=== PATIENT | female | born 1950 | race Caucasian/White ===

== ENCOUNTER → 2020-12-11 10:59 | Outpatient (CLI) | payer MEDICARE, OTHER, SELFPAY ==
[2020-12-11 12:06] LABS: COVID19 -Nasal RAPID Negative (Negative)
== END ==
PROVIDERS: PCP Internal Medicine; Referring Provider Internal Medicine; Visit Provider Internal Medicine
DX: Z20.822 Contact with and (suspected) exposure to COVID-19 (principal)
CPT/HCPCS: 87635; C9803

== ENCOUNTER → 2020-12-12 10:54 | Outpatient (CLI) | payer MEDICARE, OTHER, SELFPAY ==
--- NOTE | 2020-12-17 09:39 | PM.PFT.1 ---
Pulmonary Function Test Referral & Results Date Patient Seen: 12/12/20 Requesting provider: Leonides Baum Indication: Emphysema Results: The spirometry demonstrates an FVC of 2.57 L which is 79% of predicted. The FEV1 was measured at 1.89 L which is 77% of predicted. The FEV1/FVC ratio was 74 which is 96% of predicted. No bronchodilator was administered The diffusing capacity was measured at 17.28 which is 64% of predicted. No hemoglobin value was provided, so no correction for potential anemia could be made, if appropriate. Interpretation: This study demonstrates mild to moderate obstructive lung disease based on reduction FEV1 although FEV1/FVC ratio is preserved, shape of flow volume loop also supports an element of obstructive lung disease Diffusing capacity is moderately reduced as well, suggesting disease at the capillary alveolar level.
== END ==
PROVIDERS: PCP Internal Medicine; Referring Provider Internal Medicine; Visit Provider Internal Medicine
DX: J43.9 Emphysema, unspecified (principal); F17.210 Nicotine dependence, cigarettes, uncomplicated; J43.2 Centrilobular emphysema
CPT/HCPCS: 94010; 94729

== ENCOUNTER 2021-11-09 17:46 | Emergency (ER) | payer MEDICARE, OTHER, SELFPAY ==
[2021-11-09] VITALS (12 sets, daily range): BP systolic 128–166; BP diastolic 60–69; PULSE 95–113; RESP 18–39; TEMP 36.6; O2SAT 93–99; BMI 41.9
--- NOTE | 2021-11-09 17:55 | DI.RAD.S_ITS ---
PROCEDURE: XR CHEST 2V INDICATIONS: Shortness of breath TECHNIQUE: 2 views of the chest were acquired. COMPARISON: Outside Film, CR, XR CHEST 2 VIEWS, 07/22/2018, 12:29. FINDINGS: Surgical changes and devices: None. Lungs and pleura: Lungs are clear. No pleural effusions or pneumothorax. Mediastinum: Mediastinal contours are normal. Heart size is normal. Bones and chest wall: No suspicious bony abnormalities. Soft tissues appear unremarkable. IMPRESSION: No acute cardiopulmonary process demonstrated radiographically. Dictated by: Loyd You M.D. on 11/09/2021 at 18:29 Approved by: Loyd You M.D. on 11/09/2021 at 18:30
[2021-11-09 18:24] LABS: Add Manual Diff / Slide Review NO; Basophils Absolute Auto 100 /uL (0-100); Basophils Percent Auto 0.5 % (0-2); Eosinophils Absolute Auto 100 /uL (0-450); Eosinophils Percent Auto 0.6 % (2-4); Hemoglobin 12.6 g/dL (12.0-16.0); Lymphocytes Absolute Auto 1200 /uL (1100-4500); Lymphocytes Percent Auto 11.9 % (25-40); Mean Corpuscular HGB Conc 33.9 % (30-36); Mean Corpuscular Hemoglobin 30.2 PG (26-34); Monocytes Absolute Auto 700 /uL (0-900); Monocytes Percent Auto 6.3 % (3-14); Neutrophils Absolute Auto 8300 /uL (1500-7000); Neutrophils Percent Auto 80.7 % (50-75); Platelet Count 300 X10^3/uL (150-400); Red Blood Cell Count 4.16 X10^6/uL (4.0-5.2); Red Cell Distribution Width 13.8 % (11.6-14.8); White Blood Cell Count 10.3 X10^3/uL (4.5-11.0)
[2021-11-09 18:28] LABS: INR 1.1 (0.9-1.3)
[2021-11-09 18:33] LABS: Lactate (Lactic Acid) 2.2 mmol/L (0.7-2.1)
[2021-11-09 18:34] LABS: Alanine Aminotransferase 20 IU/L (<35); Albumin 4.1 g/dL (3.5-5.0); Albumin Globulin Ratio 1.3 (1.0-2.8); Alkaline Phosphatase 108 U/L (38-126); Aspartate Aminotransferase 23 IU/L (14-36); BUN Creatinine Ratio 14.5 (6-22); Bilirubin Total 0.3 mg/dL (0.2-1.3); Blood Urea Nitrogen 8 mg/dL (7-17); Calcium 9.8 mg/dL (8.4-10.2); Carbon Dioxide 28 mmol/L (22-32); Chloride 101 mmol/L (98-107); Creatine Kinase 44 U/L (30-135); Estimated Glomerular Filt Rate > 60.0 mL/min (>60); Globulin 3.2 g/dL (1.7-4.1); Glucose 219 mg/dL (80-110); HEMOLYSIS < 15 (0-50); Potassium 3.7 mmol/L (3.4-5.1); Sodium 136 mmol/L (137-145); Total Protein 7.3 g/dL (6.3-8.2)
[2021-11-09 18:36] LABS: COVID19 -Nasal RAPID Negative (Negative)
[2021-11-09 18:46] LABS: NT-proBNP (BNP-Adult 18+) 155 pg/mL (<125); Troponin I < 0.012 ng/mL (0.01-0.034)
--- NOTE | 2021-11-09 19:31 | PC.NURSE ---
Pt's daughter in law came out of room stating that pt wants oxygen. Pt 02 sat 98% on room air, HR 118, RR 22. Encouraged slow, deep breaths w/ some resolution. Dr. Hinson aware, added on d-dimer.
[2021-11-09] MEDS: MAG HYDROX/ALUMINUM/SIMETH SUS 20 ML, LIDOCAINE VISCOUS 2% 15 ML PO (20:03)
[2021-11-09 20:04] LABS: D Dimer 321 ng/mL (<230)
[2021-11-09 20:18] LABS: Reflexed Lactate in 2 Hours Y
[2021-11-09 20:50] LABS: Lactate 2HR (Lactic Acid Rflx) 1.7 mmol/L (0.7-2.1)
--- NOTE | 2021-11-09 20:50 | ED.SOB ---
HPI - SOB/Dyspnea General Chief Complaint: Shortness of Breath/Dyspnea Stated Complaint: sob Time Seen by Provider: 11/09/21 19:30 Source: patient, EMS, RN notes reviewed and old records reviewed Mode of arrival: EMS Limitations: no limitations History of Present Illness HPI Narrative: This is a 71-year-old comes with complaint of shortness of breath. Patient states it has been worsening for couple days. She has had increasing swelling in her lower extremities for couple months but the last few nights her lower extremities have been significantly more swollen. She has noted orthopnea. She finds if she tries to lay back she feels like there is a father coming up her throat she starts coughing but nothing productive comes up. She feels like there is thick phlegm but does not actually expect rate anything. She denies chest pain or pressure. She denies fevers. She has noted her blood pressures been high recently. She has had some mild nausea for the past month. She has chronic constipation secondary to narcotic use. Patient has known history of breast cancer, her last imaging was in November of 2020 she did not receive chemo or radiation but is on Armidex. She takes an antidepressant and uses Spiriva and budesonide for COPD. She did recently have a biopsy on her arm. She does continues to tobacco, no alcohol or illicit. Dr. Valdez 0 is her primary care Related Data Home Medications Medication Instructions Recorded Confirmed albuterol sulfate 90 mcg/actuation 2 puff INHALATION Q6H PRN 04/29/21 04/29/21 aerosol inhaler (Ventolin HFA) anastrozole 1 mg tablet 1 mg PO DAILY 04/29/21 04/29/21 fluticasone propionate 50 2 spray INTRANASAL DAILY 04/29/21 04/29/21 mcg/actuation nasal spray,suspension quetiapine 25 mg tablet 25 mg PO DAILY 04/29/21 04/29/21 quetiapine 25 mg tablet 50 mg PO BEDTIME 04/29/21 04/29/21 tiotropium bromide 18 mcg capsule 1 cap INHALATION DAILY 04/29/21 04/29/21 with inhalation device (Spiriva with HandiHaler) turmeric 400 mg capsule mg PO 04/29/21 bupropion HCl 100 mg tablet 300 mg PO DAILY 10/14/21 10/14/21 oxycodone-acetaminophen 10 mg-325 1 tab PO 5XD 10/14/21 10/14/21 mg tablet (Percocet) alprazolam 1 mg tablet mg 11/09/21 Previous Rx's Medication Instructions Recorded furosemide 40 mg tablet (Lasix) 40 mg PO DAILY #5 tab 11/09/21 Allergies Allergy/AdvReac Type Severity Reaction Status Date / Time No Known Drug Allergies Allergy Verified 11/09/21 17:53 Review of Systems Review of Systems ROS Unobtainable: All systems reviewed & are unremarkable except as noted in HPI and below Patient History Social History Smoking Status: Current every day smoker Smoking Status: Current every day smoker tobacco type: cigarettes alcohol intake frequency: other Substance Use Type: does not use Exam Narrative Exam Narrative: GENERAL: Alert and oriented x three, obese female in mild distress. HEENT: Head normocephalic, atraumatic, EOMI, pupils reactive, face symmetric, moist mucous membranes NECK: Supple, full range of motion CARDIOVASCULAR: Slightly tachycardic Regular rate and rhythm without murmurs, rubs or gallops. No JVD. RESPIRATORY: Breath sounds equal bilaterally, no wheezes rales or rhonchi. No tachypnea. No accessory muscle use. Patient speaks in full sentences. ABDOMEN: Soft, nontender. Normoactive bowel sounds all 4 quadrants. No guarding or rebound, rigidity, no mass : No CVA tenderness EXTREMITIES: Normal range of motion, no clubbing, bilateral 2+ edema. Neurovascularly intact NEUROLOGICAL: Cranial nerves II through XII grossly intact. Moving all extremities. Normal gait. SKIN: Warm, dry, no petechiae, no rashes or lesions. Initial Vital Signs Initial Vital Signs: Vital Signs Temperature 98 F 11/09/21 17:47 Pulse Rate 100 H 11/09/21 17:47 Respiratory Rate 18 11/09/21 17:47 Blood Pressure 166/60 H 11/09/21 17:47 Pulse Oximetry 96 11/09/21 17:47 Course Orders Ordered: ED Orders 11/09/21 21:12 CT angio chest PE protocol Stat Discontinued Medications Al Hydrox/Mg Hydrox/Simethicone 20 ml/ Lidocaine HCl 15 ml 0 ml PO NOW ONE Stop: 11/09/21 19:58 Last Admin: 11/09/21 20:03 Dose: 35 ml Documented by: COLLIN Furosemide (Furosemide 40 Mg/4 Ml Vial) 40 mg IV NOW ONE Stop: 11/09/21 21:13 Last Admin: 11/09/21 21:50 Dose: 40 mg Documented by: ERNIE Oxycodone/Acetaminophen (Oxycodone/Acetaminophen 5/325 Tablet) 2 tab PO NOW ONE Stop: 11/09/21 21:35 Last Admin: 11/09/21 21:49 Dose: 2 tab Documented by: ERNIE Vital Signs Vital signs: Vital Signs - 8 hr 11/09/21 22:03 11/09/21 22:30 11/09/21 22:49 Pulse Rate 113 H 96 H 95 H Respiratory Rate 21 19 25 H Blood Pressure Pulse Oximetry 97 93 93 11/09/21 22:51 Pulse Rate Respiratory Rate Blood Pressure 128/64 Pulse Oximetry MDM - SOB/Dyspnea Lab Data Result diagrams: 11/09/21 18:15 11/09/21 18:15 Labs: Lab Results 11/09/21 11/09/21 11/09/21 Range/Units 18:10 18:15 18:15 WBC 10.3 (4.5-11.0) X10^3/uL RBC 4.16 (4.0-5.2) X10^6/uL Hgb 12.6 (12.0-16.0) g/dL Hct 37.0 (36-46) % MCV 89.0 (80-100) fL MCH 30.2 (26-34) PG MCHC 33.9 (30-36) % RDW 13.8 (11.6-14.8) % Plt Count 300 (150-400) X10^3/uL Neut % (Auto) 80.7 H (50-75) % Lymph % (Auto) 11.9 L (25-40) % [place] % (Auto) 6.3 (3-14) % Eos % (Auto) 0.6 L (2-4) % Baso % (Auto) 0.5 (0-2) % Neut # (Auto) 8300 H (2600-8866) /uL Lymph # (Auto) 1200 (3166-0850) /uL [place] # (Auto) 700 (0-900) /uL Eos # (Auto) 100 (0-450) /uL Baso # (Auto) 100 (0-100) /uL PT 12.0 (10.1-12.7) SECONDS INR 1.1 (0.9-1.3) D-Dimer (<230) ng/mL Sodium (137-145) mmol/L Potassium (3.4-5.1) mmol/L Chloride (98-107) mmol/L Carbon Dioxide (22-32) mmol/L BUN (7-17) mg/dL Creatinine (0.52-1.04) mg/dL Estimated GFR (>60) mL/min BUN/Creatinine Ratio (6-22) Glucose (80-110) mg/dL Lactate (0.7-2.1) mmol/L Calcium (8.4-10.2) mg/dL Total Bilirubin (0.2-1.3) mg/dL AST (14-36) IU/L ALT (<35) IU/L Alkaline Phosphatase (38-126) U/L Total Creatine Kinase (30-135) U/L CK-MB (CK-2) CK-MB (CK-2) Rel Index Troponin I (0.01-0.034) ng/mL NT-Pro-B Natriuret Pep (<125) pg/mL Total Protein (6.3-8.2) g/dL Albumin (3.5-5.0) g/dL Globulin (1.7-4.1) g/dL Albumin/Globulin Ratio (1.0-2.8) SARS-CoV-2 (PCR) Negative (Negative) 11/09/21 11/09/21 11/09/21 Range/Units 18:15 18:15 18:15 WBC (4.5-11.0) X10^3/uL RBC (4.0-5.2) X10^6/uL Hgb (12.0-16.0) g/dL Hct (36-46) % MCV (80-100) fL MCH (26-34) PG MCHC (30-36) % RDW (11.6-14.8) % Plt Count (150-400) X10^3/uL Neut % (Auto) (50-75) % Lymph % (Auto) (25-40) % [place] % (Auto) (3-14) % Eos % (Auto) (2-4) % Baso % (Auto) (0-2) % Neut # (Auto) (2717-4197) /uL Lymph # (Auto) (7923-7305) /uL [place] # (Auto) (0-900) /uL Eos # (Auto) (0-450) /uL Baso # (Auto) (0-100) /uL PT (10.1-12.7) SECONDS INR (0.9-1.3) D-Dimer 321 H (<230) ng/mL Sodium 136 L (137-145) mmol/L Potassium 3.7 (3.4-5.1) mmol/L Chloride 101 (98-107) mmol/L Carbon Dioxide 28 (22-32) mmol/L BUN 8 (7-17) mg/dL Creatinine 0.55 (0.52-1.04) mg/dL Estimated GFR > 60.0 (>60) mL/min BUN/Creatinine Ratio 14.5 (6-22) Glucose 219 H (80-110) mg/dL Lactate 2.2 H (0.7-2.1) mmol/L Calcium 9.8 (8.4-10.2) mg/dL Total Bilirubin 0.3 (0.2-1.3) mg/dL AST 23 (14-36) IU/L ALT 20 (<35) IU/L Alkaline Phosphatase 108 (38-126) U/L Total Creatine Kinase 44 (30-135) U/L CK-MB (CK-2) TNP CK-MB (CK-2) Rel Index TNP Troponin I < 0.012 (0.01-0.034) ng/mL NT-Pro-B Natriuret Pep 155 H (<125) pg/mL Total Protein 7.3 (6.3-8.2) g/dL Albumin 4.1 (3.5-5.0) g/dL Globulin 3.2 (1.7-4.1) g/dL Albumin/Globulin Ratio 1.3 (1.0-2.8) SARS-CoV-2 (PCR) (Negative) 11/09/21 11/09/21 Range/Units 20:28 20:28 WBC (4.5-11.0) X10^3/uL RBC (4.0-5.2) X10^6/uL Hgb (12.0-16.0) g/dL Hct (36-46) % MCV (80-100) fL MCH (26-34) PG MCHC (30-36) % RDW (11.6-14.8) % Plt Count (150-400) X10^3/uL Neut % (Auto) (50-75) % Lymph % (Auto) (25-40) % [place] % (Auto) (3-14) % Eos % (Auto) (2-4) % Baso % (Auto) (0-2) % Neut # (Auto) (4118-2751) /uL Lymph # (Auto) (9954-2056) /uL [place] # (Auto) (0-900) /uL Eos # (Auto) (0-450) /uL Baso # (Auto) (0-100) /uL PT (10.1-12.7) SECONDS INR (0.9-1.3) D-Dimer (<230) ng/mL Sodium (137-145) mmol/L Potassium (3.4-5.1) mmol/L Chloride (98-107) mmol/L Carbon Dioxide (22-32) mmol/L BUN (7-17) mg/dL Creatinine (0.52-1.04) mg/dL Estimated GFR (>60) mL/min BUN/Creatinine Ratio (6-22) Glucose (80-110) mg/dL Lactate 1.7 (0.7-2.1) mmol/L Calcium (8.4-10.2) mg/dL Total Bilirubin (0.2-1.3) mg/dL AST (14-36) IU/L ALT (<35) IU/L Alkaline Phosphatase (38-126) U/L Total Creatine Kinase (30-135) U/L CK-MB (CK-2) CK-MB (CK-2) Rel Index Troponin I < 0.012 (0.01-0.034) ng/mL NT-Pro-B Natriuret Pep (<125) pg/mL Total Protein (6.3-8.2) g/dL Albumin (3.5-5.0) g/dL Globulin (1.7-4.1) g/dL Albumin/Globulin Ratio (1.0-2.8) SARS-CoV-2 (PCR) (Negative) Imaging Data Chest x-ray: Radiologist's Impression: [address] [address] XRay Report Signed Patient: Katya Boykin MR#: [id number] : 1950 Acct:[id number] Age/Sex: 71 / F Date of Service: 11/09/21 Loc: ED Accession Number: [id number] ?? Procedure: XR chest 2V Ordering Provider: Keeley Hickman D.O. PROCEDURE:? XR CHEST 2V ? INDICATIONS:? Shortness of breath ? TECHNIQUE:? 2 views of the chest were acquired.? ? COMPARISON:? Outside Film, CR, XR CHEST 2 VIEWS, 07/22/2018, 12:29. ? FINDINGS:? ? Surgical changes and devices:? None.? ? Lungs and pleura:? Lungs are clear.? No pleural effusions or pneumothorax.? ? Mediastinum:? Mediastinal contours are normal.? Heart size is normal.? ? Bones and chest wall:? No suspicious bony abnormalities.? Soft tissues appear unremarkable.? ? IMPRESSION:? No acute cardiopulmonary process demonstrated radiographically. ? ? Dictated by: Loyd You M.D. on 11/09/2021 at 18:29 ? ? Approved by: Loyd You M.D. on 11/09/2021 at 18:30 CT scan - chest: Radiologist's Impression: [place] [address] CT Scan Report Signed Patient: Katya Boykin MR#: [id number] : 1950 Acct:[id number] Age/Sex: 71 / F Date of Service: 11/09/21 Loc: ED Accession Number: [id number] ?? Procedure: CT angio chest PE protocol Ordering Provider: Shantel Hnison D.O. PROCEDURE:? CT ANGIO CHEST PE PROTOCOL ? INDICATIONS:? sob, hx breast ca ? TECHNIQUE:? After the administration of intravenous contrast, 2 mm thick sections acquired from the pulmonary apices to the posterior costophrenic angles.? 3-dimensional maximum intensity projection (MIP) coronal and sagittal reformats were then acquired through the thorax.? For radiation dose reduction, the following was used:? automated exposure control, adjustment of mA and/or kV according to patient size.? ? COMPARISON:? None. ? FINDINGS:? Image quality:? There is suboptimal contrast opacification of the segmental and subsegmental pulmonary arteries. ? Pulmonary arteries:? Pulmonary arteries are normal in size, and demonstrate no intraluminal filling defects to suggest large central pulmonary embolism.? ? Lungs and pleura:? Lungs are clear.? No pleural effusions or pneumothorax.? Central and peripheral airways are patent.? ? Mediastinum:? Heart size is normal, without pericardial effusion. Atherosclerotic calcifications are noted in the aorta, great vessels and the coronary vasculature.? No mediastinal or hilar adenopathy.? Thoracic aorta is normal in caliber and enhancement.? Esophagus is normal in caliber, without hiatal hernia.? ? Bones and chest wall:? No suspicious bony lesions.? Ribs and thoracic spine appear intact throughout. Spine degenerative disc disease and facet arthropathy.? Severe bilateral shoulder osteoarthritis.? Thyroid gland is within normal limits.? No axillary or supraclavicular adenopathy.? ? Abdomen:? Diffuse fatty infiltration of the visualized liver.? Visualized upper abdominal solid organs otherwise appear normal in the early arterial phase of enhancement.? ? ? IMPRESSION:? ? 1. Diagnostic sensitivity study limited secondary to suboptimal contrast opacification of the segmental and subsegmental pulmonary arteries. ? 2. No large central pulmonary embolus.? Small pulmonary emboli involving the segmental and subsegmental pulmonary arteries are not excluded by this study.? ? 3.? No lung consolidation or pleural effusions. ? 4. Atherosclerosis including the coronary vasculature. ? 5. Hepatic steatosis.? Dictated by: Kathy Black MD, PhD on 11/09/2021 at 21:46 ? ? Approved by: Kathy Black MD, PhD on 11/09/2021 at 21:49 ECG Data Attestation: I personally reviewed and interpreted this ECG as follows: Interpretation: Sinus tachycardia rate of 104, IL 160 QRS of 94 and QTC of 486. No acute ST elevation or depression appreciated. No S1q3T3. MDM Narrative Medical decision making narrative: 71-year-old female comes with complaint of worsening shortness of breath clinically she appears fluid overloaded, she does not have crackles on chest exam and her chest x-ray is clear but she is slightly tachycardic. She does not drop her oxygenation but is worse when she tries to lay backwards. She does also has risk factors for pulmonary embolism. Troponin x2 is negative with no acute ST changes on EKG making ACS a less likely cause. Her renal function, electrolytes, COVID swab are all appropriate. Her age related cutoff for her dimer would make her negative but with her risk factors feel appropriate to scan her for CT angio. BNP is only 155 but was given a dose of Lasix here in the department based on her clinical symptoms. Initial lactate was elevated but has improved. Blood glucose is elevated 219. CT angiography is negative for large PE. Patient feels improved with her breathing and her orthopnea after diuresis in the department. Plan to continue with Lasix. Patient is to follow-up with her physician. Patient is quite anxious to leave the department and had home. Discharge Plan Departure Patient Disposition: Home Clinical Impression: Acute exacerbation of CHF (congestive heart failure) Instructions: DI for Heart Failure Activity Restrictions/Additional Instructions: Please follow-up with your physician this week for recheck. You may continue home medications as prescribed. Take Lasix daily until gone. Prescription sent to [facility] in [place]. Please return for worsening shortness of breath, passing out, chest pain, increasing swelling of your extremities, fevers, persistent vomiting or other new or concerning symptoms. Prescriptions: New furosemide [Lasix] 40 mg tablet 40 mg PO DAILY Qty: 5 0RF No Action anastrozole 1 mg Tablet 1 mg PO DAILY 0RF quetiapine 25 mg Tablet 50 mg PO BEDTIME 0RF quetiapine 25 mg Tablet 25 mg PO DAILY 0RF albuterol sulfate [Ventolin HFA] 90 mcg/actuation Hfa Aerosol Inhaler 2 puff INHALATION Q6H PRN (Reason: Wheezing) 0RF fluticasone propionate 50 mcg/actuation [place],Suspension 2 spray INTRANASAL DAILY 0RF Spiriva with HandiHaler 18 mcg Capsule, W/Inhalation Device 1 cap INHALATION DAILY 0RF turmeric 400 mg Capsule PO 0RF bupropion HCl [Wellbutrin] 100 mg Tablet 300 mg PO DAILY 0RF oxycodone-acetaminophen [Percocet] 10-325 mg Tablet 1 tab PO 5XD 0RF alprazolam 1 mg tablet 0RF
[2021-11-09 21:03] LABS: Troponin I < 0.012 ng/mL (0.01-0.034)
--- NOTE | 2021-11-09 21:12 | DI.CT.S_ITS ---
PROCEDURE: CT ANGIO CHEST PE PROTOCOL INDICATIONS: sob, hx breast ca TECHNIQUE: After the administration of intravenous contrast, 2 mm thick sections acquired from the pulmonary apices to the posterior costophrenic angles. 3-dimensional maximum intensity projection (MIP) coronal and sagittal reformats were then acquired through the thorax. For radiation dose reduction, the following was used: automated exposure control, adjustment of mA and/or kV according to patient size. COMPARISON: None. FINDINGS: Image quality: There is suboptimal contrast opacification of the segmental and subsegmental pulmonary arteries. Pulmonary arteries: Pulmonary arteries are normal in size, and demonstrate no intraluminal filling defects to suggest large central pulmonary embolism. Lungs and pleura: Lungs are clear. No pleural effusions or pneumothorax. Central and peripheral airways are patent. Mediastinum: Heart size is normal, without pericardial effusion. Atherosclerotic calcifications are noted in the aorta, great vessels and the coronary vasculature. No mediastinal or hilar adenopathy. Thoracic aorta is normal in caliber and enhancement. Esophagus is normal in caliber, without hiatal hernia. Bones and chest wall: No suspicious bony lesions. Ribs and thoracic spine appear intact throughout. Spine degenerative disc disease and facet arthropathy. Severe bilateral shoulder osteoarthritis. Thyroid gland is within normal limits. No axillary or supraclavicular adenopathy. Abdomen: Diffuse fatty infiltration of the visualized liver. Visualized upper abdominal solid organs otherwise appear normal in the early arterial phase of enhancement. IMPRESSION: 1. Diagnostic sensitivity study limited secondary to suboptimal contrast opacification of the segmental and subsegmental pulmonary arteries. 2. No large central pulmonary embolus. Small pulmonary emboli involving the segmental and subsegmental pulmonary arteries are not excluded by this study. 3. No lung consolidation or pleural effusions. 4. Atherosclerosis including the coronary vasculature. 5. Hepatic steatosis. Dictated by: Kathy Black MD, PhD on 11/09/2021 at 21:46 Approved by: Kathy Black MD, PhD on 11/09/2021 at 21:49
[2021-11-09] MEDS: OXYCODONE/ACETAMINOPHEN 5/325 TABLET 2 TAB PO (21:49)
[2021-11-09] MEDS: FUROSEMIDE 40 MG/4 ML VIAL IV (21:50)
--- NOTE | 2021-11-10 14:45 | PC.NURSE ---
pt daughter called to clarify what she was reading in the D/C paperwork.
== END 2021-11-09 23:06 | disposition home or self-care (01) ==
PROVIDERS: Emergency Medicine; Emergency Provider Emergency Medicine
DX: I50.9 Heart failure, unspecified (principal); F17.210 Nicotine dependence, cigarettes, uncomplicated; Z20.822 Contact with and (suspected) exposure to COVID-19; R00.0 Tachycardia, unspecified; R03.0 Elevated blood-pressure reading, without diagnosis of hypertension
CPT/HCPCS: 36415; 71046; 71275; 80053; 82550; 83605; 83880; 84484; 85025; 85379; 85610; 87635; 93005; 93010; 96374; 99284; C9803; J1940; Q9967

== ENCOUNTER 2023-01-02 13:27 | Emergency (ER) | payer MEDICARE, OTHER, SELFPAY ==
[2023-01-02 13:58] VITALS: BP 136/99; PULSE 87; RESP 16; TEMP 36.1; O2SAT 96; BMI 38.7
--- NOTE | 2023-01-02 14:01 | DI.RAD.S_ITS ---
PROCEDURE: XR CHEST 1V INDICATIONS: cough TECHNIQUE: One view of the chest was acquired. COMPARISON: None. FINDINGS: Surgical changes and devices: Partially visualized left shoulder arthroplasty. Lungs and pleura: Lungs are clear. No pleural effusions or pneumothorax. Mediastinum: Mediastinal contours appear normal. Heart size is normal. Bones and chest wall: No suspicious bony lesions. Overlying soft tissues appear unremarkable. IMPRESSION: No acute pulmonary process. Dictated by: Eva Rutherford M.D. on 01/02/2023 at 14:15 Approved by: Eva Rutherford M.D. on 01/02/2023 at 14:15
[2023-01-02 15:10] LABS: Influenza A - CEPHEID Flu A NEGATIVE (NEGATIVE); Influenza B - CEPHEID Flu B NEGATIVE (NEGATIVE); Respiratory Syncytial Virus Negative (Negative)
[2023-01-02 15:15] LABS: COVID-19 CEPHEID 4-PLEX PCR Negative (Negative)
[2023-01-02 17:43] VITALS: BP 131/82; PULSE 89; RESP 18; O2SAT 99
--- NOTE | 2023-01-02 19:02 | ED_ITS ---
HPI - URI/Sore Throat <Alaina Birmingham PA-C - Last Filed: 01/02/23 19:51> General Chief Complaint: Upper Respiratory Symptoms Stated Complaint: weak chest pain back pain cough Time Seen by Provider: 01/02/23 17:16 History of Present Illness HPI Narrative: Patient is a 72-year-old female with COPD, CHF, history of breast cancer in remission, presenting for evaluation of a cough x7 days after returning from a cruise and new onset weakness this morning. She denies chest pain, shortness of breath or wheezing, but she does report some visual blurriness for the last several days, headache characterized by increased frontal facial pressure, and weakness occurring suddenly this morning. She says that she felt suddenly dizzy and weak like she might fall this morning and chose to come into the ED. She is also concerned about a pain in her back between her shoulder blades which started yesterday. She says that she fixed her food this morning but did not eat because they came straight to the emergency room due to her dizziness. She notes that she smokes about a pack a day and has COPD. She notes she takes Symbicort daily and denies increased albuterol usage. She denies any recent surgery or coagulation problems in the past. She reports nasal congestion and a sensation of her ears being clogged. She also endorses body aches and chills but says she does not ever have a fever. Of note, she reports a history of breast cancer several years ago. She notes that she had a CT last month with her primary care for her regular lung cancer screening and it showed something concerning which she was to follow up on. She states that she is uncertain if she feels weak at this time, but is afraid to stand up because it may cause her to fall. Related Data Home Medications Medication Instructions Recorded Confirmed albuterol sulfate 90 mcg/actuation 2 puff inhalation Q6H PRN Wheezing 04/29/21 05/26/22 aerosol inhaler (Ventolin HFA) fluticasone propionate 50 2 spray intranasal DAILY 04/29/21 05/26/22 mcg/actuation nasal spray,suspension quetiapine 25 mg tablet 25 mg PO DAILY 04/29/21 05/26/22 quetiapine 25 mg tablet 50 mg PO BEDTIME 04/29/21 05/26/22 tiotropium bromide 18 mcg capsule 1 cap inhalation DAILY 04/29/21 05/26/22 with inhalation device (Spiriva with HandiHaler) turmeric 400 mg capsule mg PO 04/29/21 oxycodone-acetaminophen 10 mg-325 1 tab PO DAILY 10/14/21 05/26/22 mg tablet (Percocet) alprazolam 1 mg tablet mg 11/09/21 ascorbic acid (vitamin C) 500 mg 500 mg PO DAILY 05/26/22 05/26/22 tablet (Vitamin C) cholecalciferol (vitamin D3) 25 1,000 unit DAILY 05/26/22 05/26/22 mcg (1,000 unit) tablet (Vitamin D3) furosemide 40 mg tablet (Lasix) 40 mg PO PRN PRN Edema 05/26/22 05/26/22 metformin 500 mg tablet 500 mg PO DAILY 05/26/22 05/26/22 mirtazapine 30 mg tablet 30 mg PO DAILY 05/26/22 05/26/22 Previous Rx's Medication Instructions Recorded anastrozole 1 mg tablet 1 mg PO DAILY #30 tabs 12/16/21 Allergies Allergy/AdvReac Type Severity Reaction Status Date / Time No Known Drug Allergies Allergy Verified 11/09/21 17:53 Patient History <Alaina Birmingham PA-C - Last Filed: 01/02/23 19:51> Social History Smoking Status: Current every day smoker Smoking Status: Current every day smoker tobacco type: cigarettes alcohol intake frequency: other Substance Use Type: does not use Exam <Alaina Birmingham PA-C - Last Filed: 01/02/23 19:51> Initial Vital Signs Initial Vital Signs: Vital Signs Temperature 97 F L 01/02/23 13:58 Pulse Rate 87 01/02/23 13:58 Respiratory Rate 16 01/02/23 13:58 Blood Pressure 136/99 H 01/02/23 13:58 Pulse Oximetry 96 01/02/23 13:58 Oxygen Delivery Method Room Air 01/02/23 13:58 GENERAL: 72 year old patient appears stated age. Well-developed patient, in no acute distress. Sitting in a wheelchair. [place]: Atraumatic. Normocephalic. Tenderness to percussion of sinuses EYES: Pupils equal round and reactive. No scleral icterus. No injection or drainage. ENT: Nose without bleeding, purulent drainage. Throat without erythema, Airway patent. Uvula midline. TMs pearly chavez with good COL. NECK: Trachea midline. CARDIOVASCULAR: Regular rate and rhythm without murmurs, gallops, or rubs. RESPIRATORY: Clear to auscultation. Breath sounds equal bilaterally. No wheezes, rales, or rhonchi. EXTREMITIES: No bilateral edema BACK: Tender over bilateral scapula area worse with palpation, no chest pain with external palpation, no focal spinal tenderness NEURO: AOx3. SKIN: No rash or erythema of visible areas <DO Ruddy Kim Last Filed: 01/03/23 03:13> Initial Vital Signs Initial Vital Signs: Vital Signs Temperature 97 F L 01/02/23 13:58 Pulse Rate 87 01/02/23 13:58 Respiratory Rate 16 01/02/23 13:58 Blood Pressure 136/99 H 01/02/23 13:58 Pulse Oximetry 96 01/02/23 13:58 Oxygen Delivery Method Room Air 01/02/23 13:58 Course <Alaina Birmingham PA-C - Last Filed: 01/02/23 19:51> Orders Ordered: ED Orders 01/02/23 14:01 XR chest 1V Stat 01/02/23 14:03 Covid-19 + FLU A/B + RSV - PCR Stat Vital Signs Vital signs: Vital Signs - 8 hr 01/02/23 13:58 01/02/23 17:43 Temperature 97 F L Pulse Rate 87 89 Respiratory Rate 16 18 Blood Pressure 136/99 H 131/82 Pulse Oximetry 96 99 Oxygen Delivery Method Room Air Room Air <Shady Lopez DO - Last Filed: 01/03/23 03:13> Orders Ordered: ED Orders 01/02/23 14:01 XR chest 1V Stat 01/02/23 14:03 Covid-19 + FLU A/B + RSV - PCR Stat Vital Signs Vital signs: Vital Signs - 8 hr 01/02/23 13:58 01/02/23 17:43 Temperature 97 F L Pulse Rate 87 89 Respiratory Rate 16 18 Blood Pressure 136/99 H 131/82 Pulse Oximetry 96 99 Oxygen Delivery Method Room Air Room Air MDM - URI/Sore Throat <Alaina Birmingham PA-C - Last Filed: 01/02/23 19:51> Lab Data Labs: Lab Results 01/02/23 Range/Units 14:03 SARS-CoV-2 (PCR) Negative (Negative) Influenza A (RT-PCR) Flu a negative (NEGATIVE) Influenza B (RT-PCR) Flu b negative (NEGATIVE) RSV (PCR) Negative (Negative) Imaging Data Chest x-ray: Radiologist's Impression: PROCEDURE:? XR CHEST 1V ? INDICATIONS:? cough ? TECHNIQUE:? One view of the chest was acquired.? ? COMPARISON:? None. ? FINDINGS:? ? Surgical changes and devices:? Partially visualized left shoulder arthroplasty. ? Lungs and pleura:? Lungs are clear.? No pleural effusions or pneumothorax.? ? Mediastinum:? Mediastinal contours appear normal.? Heart size is normal.? ? Bones and chest wall:? No suspicious bony lesions.? Overlying soft tissues appear unremarkable.? ? IMPRESSION:? No acute pulmonary process. ? ? Dictated by: Eva Rutherford M.D. on 01/02/2023 at 14:15 ? ? Approved by: Eva Rutherford M.D. on 01/02/2023 at 14:15 ? MDM Narrative Medical decision making narrative: CC: This is a new problem, uncertain diagnosis possible systemic effects Complicating co-morbidities: CHF, COPD, history of breast cancer in remission Corroborating data: Data collected from: patient Medical records reviewed: treated for CHF exacerbation last year Differential considered: ACS, lung cancer, dysrhythmia, electrolyte disturbance, PE, sinusitis, bronchitis, atypical pneumonia Exam documented above, pertinent findings include: Tenderness to percussion of sinuses, clear to auscultation bilaterally Lab Test results independently reviewed as above. Pertinent findings: Negative for COVID, flu and RSV. Imaging studies independently reviewed: No abnormal findings noted on chest x- ray. Consultations: Discussed case with Dr. Lopez who recommends further workup starting with EKG and bloodwork. Discussion: Patient had clear capacity to make decisions for herself. She would like to leave without further workup reportedly due to the amount of time it took for her to be seen. We discussed that although her chest x-ray is negative, I am concerned for her symptoms of dizziness and visual blurriness with her significant comorbidities. We discussed that I think she needs an EKG as well as blood work including CBC and CMP and possible further imaging to further evaluate and rule out possible concerning causes of new onset of dizziness and visual blurriness. We discussed what some of these issues may be including ACS, electrolyte disturbance, pneumonia not seen on chest x-ray or other concerning cause. We discussed that if she does leave now, she is at increased risk for developing severe illness. We did discuss that should she develop concerning symptoms or continues to experience weakness, I recommend that she return for this further evaluation. I will go ahead and treat for an atypical pneumonia with antibiotic and steroid given that she has COPD and she has been having symptoms for the last 7 days. She is agreeable to plan of care and verbalizes understanding. She chooses with full knowledge to sign out Against Medical Advice. Disposition: see below, along with detailed discharge instructions that have been reviewed with patient as well as indications for ED re-evaluation and additional outpatient follow up <Shady Lopez DO - Last Filed: 01/03/23 03:13> Lab Data Labs: Lab Results 01/02/23 Range/Units 14:03 SARS-CoV-2 (PCR) Negative (Negative) Influenza A (RT-PCR) Flu a negative (NEGATIVE) Influenza B (RT-PCR) Flu b negative (NEGATIVE) RSV (PCR) Negative (Negative) Discharge Plan Departure Patient Disposition: Left Against Medical Advice Clinical Impression: Weakness, Visual blurriness, Cough Prescriptions: No Action quetiapine 25 mg Tablet 50 mg PO BEDTIME quetiapine 25 mg Tablet 25 mg PO DAILY albuterol sulfate [Ventolin HFA] 90 mcg/actuation Hfa Aerosol Inhaler 2 puff INHALATION Q6H PRN (Reason: Wheezing) fluticasone propionate 50 mcg/actuation [place],Suspension 2 spray INTRANASAL DAILY Spiriva with HandiHaler 18 mcg Capsule, W/Inhalation Device 1 cap INHALATION DAILY turmeric 400 mg Capsule PO oxycodone-acetaminophen [Percocet] 10-325 mg Tablet 1 tab PO DAILY anastrozole 1 mg Tablet 1 mg PO DAILY Qty: 30 11RF metformin 500 mg Tablet 500 mg PO DAILY ascorbic acid (vitamin C) [Vitamin C] 500 mg Tablet 500 mg PO DAILY mirtazapine 30 mg Tablet 30 mg PO DAILY cholecalciferol (vitamin D3) [Vitamin D3] 25 mcg (1,000 unit) Tablet 1,000 unit DAILY furosemide [Lasix] 40 mg tablet 40 mg PO PRN PRN (Reason: Edema) alprazolam 1 mg tablet Stand Alone Forms: Against Medical Advice <Shady Lopez DO - Last Filed: 01/03/23 03:13> Cosign ED Attending Abdelrahman Attestation: I was immediately available in the department for consultation. Documentation has been reviewed. I agree with assessment and plan.
== END 2023-01-02 19:20 | disposition left against medical advice (07) ==
PROVIDERS: Emergency Medicine; Emergency Provider Physician Assistant
DX: R53.1 Weakness (principal); H53.8 Other visual disturbances; R05.9 Cough, unspecified; R51.9 Headache, unspecified
CPT/HCPCS: 0241U; 71045; 99283